=== PATIENT | female | born 1985 | race Two or more races ===

== ENCOUNTER 2020-04-14 16:23 | Emergency (ER) | payer SELFPAY ==
[~2020-04-14] VITALS: Ht 175.3 cm; Wt 100.0 kg
[2020-04-14 17:18] LABS: BILIRUBIN,URINE NEGATIVE (NEG); CLARITY,URINE CLEAR; COLOR,URINE YELLOW; NITRITE,URINE NEGATIVE (NEG); PROTEIN,URINE NEGATIVE (NEG-TRACE)
[2020-04-14 17:25] LABS: BACTERIA,URINE FEW /HPF (0-FEW); RBC,URINE 0 /HPF (0-2)
--- NOTE | 2020-04-14 18:00 | PHYS DOC ---
Past Medical History Past Medical History: No Pertinent History (BENITEZ FERRERA APRN) Past Surgical History: Additional Past Surgical Histo: vesicle sx (BENITEZ FERRERA APRN) Smoking Status: Never Smoker Alcohol Use: None (BENITEZ FERRERA APRN) General Adult EDM: Chief Complaint: FLANK PAIN HPI: HPI: Patient is a 34 year old female presents to the emergency room for evaluation of dysuria and difficulty urinating. Patient states low back pain as well. No fevers, vomiting, or diarrhea. She reports no bowel movement x3 days. She denies any vaginal complaints, discharge or STD concerns. (BENITEZ FERRERA APRN) Review of Systems: Review of Systems: Constitutional: Denies fever or chills. [] Eyes: Denies change in visual acuity. [] HENT: Denies nasal congestion or sore throat. [] Respiratory: Denies cough or shortness of breath. [] Cardiovascular: Denies chest pain or edema. [] GI: REPORTS abdominal pain, DENIES nausea, vomiting, bloody stools or diarrhea. [] : REPORTS dysuria. [] Musculoskeletal: REPORTS LOW back pain [] Integument: Denies rash. [] Neurologic: Denies headache, focal weakness or sensory changes. [] Endocrine: Denies polyuria or polydipsia. [] Lymphatic: Denies swollen glands. [] Psychiatric: Denies depression or anxiety. [] (BENITEZ FERRERA APRN) Heart Score: Risk Factors: Risk Factors: DM, Current or recent (<one month) smoker, HTN, HLP, family history of CAD, obesity. Risk Scores: Score 0 - 3: 2.5% MACE over next 6 weeks - Discharge Home Score 4 - 6: 20.3% MACE over next 6 weeks - Admit for Clinical Observation Score 7 - 10: 72.7% MACE over next 6 weeks - Early Invasive Strategies (BENITEZ FERRERA APRN) Current Medications: Current Medications Iohexol (Omnipaque 300 Mg/ml) 75 ml 1X ONCE IV ; Start 04/14/20 at 20:00; Stop 04/14/20 at 20:25; Status DC Info (CONTRAST GIVEN -- Rx MONITORING) 1 each PRN DAILY PRN MC SEE COMMENTS; Start 04/14/20 at 20:30; Stop 04/16/20 at 20:29 (KENNY EVANS MD) Physical Exam: PE: Constitutional: Well developed, well nourished, no acute distress, non-toxic appearance. [] HENT: Normocephalic, atraumatic, bilateral external ears normal, oropharynx moist, no oral exudates, nose normal. [] Eyes: PERRLA, EOMI, conjunctiva normal, no discharge. [] Neck: Normal range of motion, no tenderness, supple, no stridor. [] Cardiovascular:Heart rate regular rhythm, no murmur [] Lungs & Thorax: Bilateral breath sounds clear to auscultation [] Abdomen: Bowel sounds normal, soft, TTP SUPRAPUBIC [] Skin: Warm, dry, no erythema, no rash. [] Back:RT LUMBAR tenderness, no CVA tenderness. [] Extremities: No tenderness, no cyanosis, no clubbing, ROM intact, no edema. [] Neurologic: Alert and oriented X 3, normal motor function, normal sensory function, no focal deficits noted. [] Psychologic: Affect normal, judgement normal, mood normal. [] (BENITEZ FERRERA APRN) PE: My exam abdomen soft with tenderness in the right lower quadrant with some guarding no rebound. (KENNY EVANS MD) Current Patient Data: Labs: Laboratory Tests Test 04/14/20 16:30 04/14/20 16:51 Urine Collection Type Unknown Urine Color Yellow Urine Clarity Clear Urine pH 7.0 (<5.0-8.0) Urine Specific [place] 1.010 (1.000-1.030) Urine Protein Negative mg/dL (NEG-TRACE) Urine Glucose (UA) Negative mg/dL (NEG) Urine Ketones (Stick) 15 mg/dL (NEG) Urine Blood Moderate (NEG) Urine Nitrite Negative (NEG) Urine Bilirubin Negative (NEG) Urine Urobilinogen Dipstick 1.0 mg/dL (0.2 mg/dL) Urine Leukocyte Esterase Trace (NEG) Urine RBC 0 /HPF (0-2) Urine WBC 11-20 /HPF (0-4) Urine Squamous Epithelial Cells Many /LPF Urine Bacteria Few /HPF (0-FEW) POC Urine HCG, Qualitative Hcg negative (Negative) Vital Signs: Vital Signs Date Time Temp Pulse Resp B/P (MAP) Pulse Ox O2 Delivery O2 Flow Rate FiO2 04/14/20 17:32 98.3 88 16 134/77 (96) 98 Room Air 98.3 (BENITEZ FERRERA APRN) Labs: Laboratory Tests Test 04/14/20 16:30 04/14/20 16:51 04/14/20 18:52 04/14/20 19:20 Urine Collection Type Unknown Urine Color Yellow Urine Clarity Clear Urine pH 7.0 Urine Specific [place] 1.010 Urine Protein Negative mg/dL Urine Glucose (UA) Negative mg/dL Urine Ketones (Stick) 15 mg/dL Urine Blood Moderate Urine Nitrite Negative Urine Bilirubin Negative Urine Urobilinogen Dipstick 1.0 mg/dL Urine Leukocyte Esterase Trace Urine RBC 0 /HPF Urine WBC 11-20 /HPF Urine Squamous Epithelial Cells Many /LPF Urine Bacteria Few /HPF Bedside Urine HCG, Qualitative Hcg negative Sodium Level 137 mmol/L Potassium Level 3.4 mmol/L Chloride Level 102 mmol/L Carbon Dioxide Level 23 mmol/L Anion Gap 12 Blood Urea Nitrogen 11 mg/dL Creatinine 0.8 mg/dL Estimated GFR (Cockcroft-Gault) 82.1 BUN/Creatinine Ratio 14 Glucose Level 95 mg/dL Calcium Level 9.1 mg/dL Total Bilirubin 0.5 mg/dL Aspartate Amino Transf (AST/SGOT) 27 U/L Alanine Aminotransferase (ALT/SGPT) 37 U/L Alkaline Phosphatase 90 U/L Total Protein 7.8 g/dL Albumin 3.8 g/dL Albumin/Globulin Ratio 1.0 Lipase 84 U/L White Blood Count 14.3 x10^3/uL Red Blood Count 4.71 x10^6/uL Hemoglobin 14.7 g/dL Hematocrit 42.8 % Mean Corpuscular Volume 91 fL Mean Corpuscular Hemoglobin 31 pg Mean Corpuscular Hemoglobin Concent 34 g/dL Red Cell Distribution Width 12.7 % Platelet Count 291 x10^3/uL Neutrophils (%) (Auto) 73 % Lymphocytes (%) (Auto) 20 % Monocytes (%) (Auto) 6 % Eosinophils (%) (Auto) 1 % Basophils (%) (Auto) 1 % Neutrophils # (Auto) 10.5 x10^3/uL Lymphocytes # (Auto) 2.8 x10^3/uL Monocytes # (Auto) 0.8 x10^3/uL Eosinophils # (Auto) 0.1 x10^3/uL Basophils # (Auto) 0.1 x10^3/uL Platelet Estimate Adequate Platelet Clumps, EDTA Present Current Medications Medications (Trade) Dose Ordered Sig/Myesha Route PRN Reason Start Time Stop Time Status Last Admin Dose Admin Iohexol (Omnipaque 300 Mg/ml) 75 ml 1X ONCE IV 04/14/20 20:00 04/14/20 20:25 DC Info (CONTRAST GIVEN -- Rx MONITORING) 1 each PRN DAILY PRN MC SEE COMMENTS 04/14/20 20:30 04/16/20 20:29 (KENNY EVANS MD) EKG: EKG: [] (BENITEZ FERRERA APRN) Radiology/Procedures: Radiology/Procedures: [] (BENITEZ FERRERA APRN) Radiology/Procedures: [facility] [address] [place] [address] IMAGING REPORT Signed PATIENT: MADISYN ORDOÑEZ ACCOUNT: [id number] : 1985 LOCATION: ER AGE: 34 SEX: F EXAM STATUS: REG ER ORD. PHYSICIAN: KENNY EVANS MD REASON: RT FLANK PAIN, rlq pain, elevated wbc count, r/o appy PROCEDURE: CT ABDOMEN PELVIS WO CONTRAST Exam: CT of abdomen and pelvis without contrast INDICATION: Right flank pain, right upper quadrant TECHNIQUE: Sequential axial images through the abdomen and pelvis obtained without IV contrast. Sagittal and coronal reformatted images were reconstructed from the axial data and reviewed. Comparisons: None FINDINGS: Heart size is normal. No pericardial effusion. Visualized lung bases are clear. No pleural effusion. Evaluation of the solid organs limited secondary to noncontrast technique. Diffuse hepatic steatosis. Spleen, pancreas and adrenals are unremarkable. Gallbladder surgically absent. No perinephric inflammation or hydronephrosis. No renal or ureteral calculi are identified. Bladder is distended and appears thin-walled. Uterus is nonenlarged. Large cystic lesions at the adnexa bilaterally largest on the right measuring 4.7 cm in long axis with a small amount of adjacent fluid in the pelvis. Large and small bowel are unremarkable. Appendix is normal. No free intra-abdominal air. Abdominal aorta has a normal course and caliber. No enlarged abdominal lymph nodes are identified. No suspicious osseous lesions or acute fractures. IMPRESSION: 1. Cystic lesions at the adnexa bilaterally, larger on the right measuring up to 4.7 cm with a small amount of free fluid in the pelvis. This likely represents large cystic lesion in the ovary however is incompletely characterized on CT. Ultrasound would better evaluate, particularly if there are concerns for torsion. 2. Normal appendix. Exposure: One or more of the following in the visualized dose reduction techniques were utilized for this examination: 1. Automated exposure control 2. Adjustment of the MA and/or KV according to patient size 3. Use of iterative of reconstructive technique Electronically signed by: Kaleigh Casas MD (04/14/2020 8:33 PM) [facility] DICTATED and SIGNED BY: KALEIGH CASAS MD DATE: 04/14/[id number] 0 [facility] [address] [place] [address] IMAGING REPORT Signed PATIENT: MADISYN ORDOÑEZ ACCOUNT: [id number] : 1985 LOCATION: ER AGE: 34 SEX: F EXAM STATUS: REG ER ORD. PHYSICIAN: KENNY EVANS MD REASON: rlq pain, +cyst, r/o torsion PROCEDURE: TRANSVAGINAL Pelvic ultrasound, transvaginal: Reason for examination: Right lower quadrant pain with cysts. Evaluate for torsion. Transvaginal ultrasound examination of the pelvis was performed. Uterus measures 8.6 x 3.9 x 4.9 cm in greatest dimension. Endometrium is not abnormally thickened at 7.3 mm. Within the endometrial cavity there is a 2.4 mm hypoechoic focus of uncertain etiology. Nabothian cysts are seen in cervix measuring up to 9.1 mm in size. Right ovary measures 3.3 x 2.3 x 2.0 cm in greatest dimension and shows good vascular flow but contains several small follicles with the largest measuring 1 cm in greatest dimension. Between the right ovary and uterus, there is a 3.1 x 5.2 x 2.3 cm cystic lesion which may represent pedunculated ovarian cyst or a paraovarian cyst. The left ovary measures 3.8 x 2.2 x 4.6 cm in greatest dimension and contains a large 4.6 x 2.8 x 2.8 cm cyst. The left ovary however does show vascular flow without evidence of torsion. There is free fluid in the pelvis. IMPRESSION: 4.6 x 2.8 x 2.8 cm cyst in the left ovary. No evidence of left ovarian torsion. 5.2 x 3.1 x 2.3 cm cystic lesion between the right ovary and uterus which may represent a pedunculated ovarian cyst or paraovarian cyst. No evidence of right ovary torsion. Free fluid in the pelvic cul-de-sac. Electronically signed by: Yaima Villar MD (04/14/2020 10:00 PM) [facility] DICTATED and SIGNED BY: YAIMA VILLAR MD DATE: 04/14/20 [id number] (KENNY EVANS MD) Course & Med Decision Making: Course & Med Decision Making Pertinent Labs and Imaging studies reviewed. (See chart for details) [] Patient's care transferred to Dr. Evans at 1900, pending disposition and lab results (BENITEZ FERRERA APRN) Course & Med Decision Making 34-year-old female presents with lower abdominal pain. CT showed a cyst on the right ovary. Patient refused pain meds for home ER. Ultrasound was done to rule out torsion, there is no evidence of ovarian torsion. Patient be discharged with pain meds. Return precautions given. (KENNY EVANS MD) Dragon Disclaimer: Dragon Disclaimer: This electronic medical record was generated, in whole or in part, using a voice recognition dictation system. (BENITEZ FERRERA APRN) Departure Departure Impression: Primary Impression: Right ovarian cyst Additional Impression: Right lower quadrant pain Disposition: ADMITTED INPT THIS HOSP Condition: STABLE Referrals: NO PCP (PCP) CANDIDA TREVIZO Jr, MD 2-3 DAYS Patient Instructions: Ovarian Cyst Additional Instructions: EMERGENCY DEPARTMENT GENERAL DISCHARGE INSTRUCTIONS THANK YOU for coming to [facility] Emergency Department (ED) today and trusting us with your care. We trust that you had a positive experience in our Emergency Department. If you wish to speak to the department Management you can contact the retail department supervisor at . YOUR FOLLOW UP INSTRUCTIONS ARE FOLLOWS: Do you have a private doctor? If you do not have a private doctor, please ask for a resource list of physicians or clinics that may be able to assist you with follow up care. The Emergency Physician has interpreted your x-rays. The X-ray specialist will also review them. If there is a change in the findings you will be notified in 48 hours when at all possible. A lab test or lab culture may have been done, your results will be reviewed and you will be notified if you need a change in treatment. ADDITIONAL INSTRUCTIONS AND INFORMATION Your care today has been supervised by a physician who is specially trained in emergency care. Many problems require more than one evaluation for a complete diagnosis an d treatment. We recommend that you schedule your follow up appointment as recommended to ensure complete treatment of your illness or injury. If you are unable to obtain follow up care and continue to have a problem, or if your condition worsens we recommend that you return to the ED. We are not able to safely determine your condition over the phone nor are we able to give sound medical advice over the phone. For these safety reasons, if you call for medical advice we will ask you to come to the ED for further evaluation If you have any questions regarding these discharge instructions please call the ED at . SAFETY INFORMATION In the interest of safety, wellness, and injury prevention; we encourage you to wear your seatbelt, if you smoke; quit smoking, and we encourage your family to use protective helmet for bicycling and other sporting events that present an increased risk for head injury. IF YOUR SYMPTOMS WORSEN OR NEW SYMPTOMS DEVELOP, OR YOU HAVE CONCERNS ABOUT YOUR CONDITION; OR IF YOUR CONDITION WORSENS WHILE YOU ARE WAITING FOR YOUR FOLLOW UP APPOINTMENT; EITHER CONTACT YOUR PRIMARY CARE DOCTOR, THE PHYSICIAN WHOSE NAME AND NUMBER YOU WERE GIVEN, OR RETURN TO THE ED IMMEDIATELY. Scripts Ondansetron Hcl (ZOFRAN) 4 Mg Tablet 1 TAB PO PRN Q6-8HRS PRN for NAUSEA, #12 TAB Prov: KENNY EVANS MD 04/14/20 Hydrocodone/Apap 5-325 (NORCO 5-325 TABLET) 1 Each Tablet 1-2 EACH PO PRN Q6HRS PRN for PAIN, #15 as needed for pain Prov: KENNY EVANS MD 04/14/20 BENITEZ FERRERA APRN Apr 14, 2020 18:00 KENNY EVANS MD Apr 14, 2020 20:39
[2020-04-14 19:09] LABS: CALCIUM 9.1 mg/dL (8.5-10.1); CREATININE 0.8 mg/dL (0.6-1.0); GFR 82.1; POTASSIUM 3.4 mmol/L (3.5-5.1)
[2020-04-14 19:14] LABS: ALBUMIN 3.8 g/dL (3.4-5.0); TOTAL BILIRUBIN 0.5 mg/dL (0.2-1.0); TOTAL PROTEIN 7.8 g/dL (6.4-8.2)
[2020-04-14 19:30] LABS: BASO # 0.1 x10^3/uL (0.0-0.2); BASO % 1 % (0-3); EOS # 0.1 x10^3/uL (0.0-0.7); EOS % 1 % (0-3); HEMATOCRIT 42.8 % (36.0-47.0); HEMOGLOBIN 14.7 g/dL (12.0-15.5); LYMPH # 2.8 x10^3/uL (1.0-4.8); LYMPH % 20 % (24-48); MEAN CORPUSCULAR HEMOGLOBIN 31 pg (25-35); MEAN CORPUSCULAR HGB CONC 34 g/dL (31-37); MEAN CORPUSCULAR VOLUME 91 fL (79-100); MONO # 0.8 x10^3/uL (0.0-1.1); MONO % 6 % (0-9); NEUT # 10.5 x10^3/uL (1.8-7.7); NEUT % 73 % (31-73); PLATELET COUNT 291 x10^3/uL (140-400); RED BLOOD COUNT 4.71 x10^6/uL (3.50-5.40); RED CELL DISTRIBUTION WIDTH 12.7 % (11.5-14.5); WHITE BLOOD COUNT 14.3 x10^3/uL (4.0-11.0)
[2020-04-14 19:54] LABS: PLATELET CLUMP PRESENT; PLT ESTIMATE ADEQUATE (ADEQUATE)
[2020-04-14] MEDS ORDERED: IOHEXOL 300 MG/ML 100ML VIAL. IV ONE (20:00)
[2020-04-14] MEDS ORDERED: CONTRAST GIVEN. MC PRN (20:30)
--- NOTE | 2020-04-14 20:36 | RAD ---
Exam: CT of abdomen and pelvis without contrast INDICATION: Right flank pain, right upper quadrant TECHNIQUE: Sequential axial images through the abdomen and pelvis obtained without IV contrast. Sagittal and coronal reformatted images were reconstructed from the axial data and reviewed. Comparisons: None FINDINGS: Heart size is normal. No pericardial effusion. Visualized lung bases are clear. No pleural effusion. Evaluation of the solid organs limited secondary to noncontrast technique. Diffuse hepatic steatosis. Spleen, pancreas and adrenals are unremarkable. Gallbladder surgically absent. No perinephric inflammation or hydronephrosis. No renal or ureteral calculi are identified. Bladder is distended and appears thin-walled. Uterus is nonenlarged. Large cystic lesions at the adnexa bilaterally largest on the right measuring 4.7 cm in long axis with a small amount of adjacent fluid in the pelvis. Large and small bowel are unremarkable. Appendix is normal. No free intra-abdominal air. Abdominal aorta has a normal course and caliber. No enlarged abdominal lymph nodes are identified. No suspicious osseous lesions or acute fractures. IMPRESSION: 1. Cystic lesions at the adnexa bilaterally, larger on the right measuring up to 4.7 cm with a small amount of free fluid in the pelvis. This likely represents large cystic lesion in the ovary however is incompletely characterized on CT. Ultrasound would better evaluate, particularly if there are concerns for torsion. 2. Normal appendix. Exposure: One or more of the following in the visualized dose reduction techniques were utilized for this examination: 1. Automated exposure control 2. Adjustment of the MA and/or KV according to patient size 3. Use of iterative of reconstructive technique Electronically signed by: Kaleigh Munguia MD (04/14/2020 8:33 PM) [facility]
--- NOTE | 2020-04-14 22:02 | RAD ---
Pelvic ultrasound, transvaginal: Reason for examination: Right lower quadrant pain with cysts. Evaluate for torsion. Transvaginal ultrasound examination of the pelvis was performed. Uterus measures 8.6 x 3.9 x 4.9 cm in greatest dimension. Endometrium is not abnormally thickened at 7.3 mm. Within the endometrial cavity there is a 2.4 mm hypoechoic focus of uncertain etiology. Nabothian cysts are seen in cervix measuring up to 9.1 mm in size. Right ovary measures 3.3 x 2.3 x 2.0 cm in greatest dimension and shows good vascular flow but contains several small follicles with the largest measuring 1 cm in greatest dimension. Between the right ovary and uterus, there is a 3.1 x 5.2 x 2.3 cm cystic lesion which may represent pedunculated ovarian cyst or a paraovarian cyst. The left ovary measures 3.8 x 2.2 x 4.6 cm in greatest dimension and contains a large 4.6 x 2.8 x 2.8 cm cyst. The left ovary however does show vascular flow without evidence of torsion. There is free fluid in the pelvis. IMPRESSION: 4.6 x 2.8 x 2.8 cm cyst in the left ovary. No evidence of left ovarian torsion. 5.2 x 3.1 x 2.3 cm cystic lesion between the right ovary and uterus which may represent a pedunculated ovarian cyst or paraovarian cyst. No evidence of right ovary torsion. Free fluid in the pelvic cul-de-sac. Electronically signed by: Sarah Moulton MD (04/14/2020 10:00 PM) [facility]
[2020-04-14] MEDS ORDERED: HYDR-3164 PO (22:30)
[2020-04-14] MEDS ORDERED: ONDA4TAB7 PO (22:30)
[2020-04-14 22:45] VITALS: BP 139/81
== END 2020-04-14 22:43 | disposition home or self-care (01) ==
LOC: ER 16:23
DX: N83.201 Unspecified ovarian cyst, right side (principal)
CPT/HCPCS: 36415; 74176; 76830; 80053; 81001; 81025; 83690; 85025; 87086; 99285-25